=== PATIENT | male | born 1955 | race African-American/Black ===

== ENCOUNTER 2018-12-23 14:15 | Inpatient (IN) | payer OTHER ==
[2018-12-23 19:18] VITALS: BMI 28.0
--- NOTE | 2018-12-23 20:19 | HP ---
"CIWA Score Nausea/Vomitin-Mild Nausea/No Vomiting Muscle Tremors: 1-None Visible, but [place] Anxiety: 3 Agitation: 4-Moderately Restless Paroxysmal Sweats: 3 Orientation: 2-Disoriented Date<2 days Tacttile Disturbances: 0-None Auditory Disturbances: 0-None Visual Disturbances: 0-None Headache: 2-Mild CIWA-Ar Total Score: 16 - Admission Criteria OAS Guidelines: Admission for Medically Managed Detox: Requires at least one of the followin. CIWA greater than 12 2. Seizures within the past 24 hours 3. Delirium tremens within the past 24 hours 4. Hallucinations within the past 24 hours 5. Acute intervention needed for co occurring medical disorder 6. Acute intervention needed for co occurring psychiatric disorder 7. Severe withdrawal that cannot be handled at a lower level of care (continued vomiting, continued diarrhea, abnormal vital signs) requiring intravenous medication and/or fluids 8. Patient presents the following: CIWA greater than 12 Admission Criteria Met: Admission criteria met Admission ROS [facility] Chief Complaint: Alcohol withdrawal. Allergies/Adverse Reactions: Allergies Allergy/AdvReac Type Severity Reaction Status Date / Time No Known Allergies Allergy Verified 12/23/18 19:18 History of Present Illness: I need detox for my alcohol and my cocaine. Alcohol use began at age 16. Current years x years. Cocaine use began at age 37. Marijuana use began at age 16. Nicotine use began at age 16. PMHx: Cough x 2 days. PPD (+) rx'd w/ INH; Varicose veins.Denies other significant PMH MHHx: Denies MH problems. Denies thoughts of harming self or others. 12/23/18 EKG: Abnormal T wave and Prolonged QT interval Search Terms: Avila Feliz, 1955 Search Date: 12/23/2018 08:16:06 PM The Drug Utilization Report below displays all of the controlled substance prescriptions, if any, that your patient has filled in the last twelve months. The information displayed on this report is compiled from pharmacy submissions to the Department, and accurately reflects the information as submitted by the pharmacies. This report was requested by: Dorys Porras | Reference #: [id number] There are no results for the search terms that you entered. Exam Limitations: No Limitations - Ebola screening Have you traveled outside of the country in the last 21 days: No Have you had contact with anyone from an Ebola affected area: No Have you been sick,other than usual withdrawal symptoms: No (Denies recent exposure to measles) Do you have a fever: No - Review of Systems Constitutional: Chills, Diaphoresis EENT: reports: Blurred Vision Respiratory: reports: Cough (Cough x today profuctive white phlegm) Cardiac: reports: No Symptoms Reported GI: reports: Diarrhea (brownish, watery 2 x today), Nausea : reports: No Symptoms Reported Musculoskeletal: reports: No Symptoms Reported Integumentary: reports: No Symptoms Reported Neuro: reports: Headache (Temporal - mild), Tremors Endocrine: reports: No Symptoms Reported Hematology: reports: No Symptoms Reported Psychiatric: reports: Judgement Intact, Agitated, Anxious, Disorientated ( Missed date by 2 days) Patient History - Patient Medical History Hx Anemia: No Hx Asthma: No Hx Chronic Obstructive Pulmonary Disease (COPD): No Hx Cancer: No Hx Cardiac Disorders: No Hx Congestive Heart Failure: No Hx Hypertension: No Hx Hypercholesterolemia: No Hx Pacemaker: No HX Cerebrovascular Accident: No Hx Seizures: No Hx Dementia: No Hx Diabetes: No Hx Gastrointestinal Disorders: No Hx Liver Disease: No Hx Genitourinary Disorders: No Hx Sexually Transmitted Disorders: No Hx Renal Disease (ESRD): No Hx Thyroid Disease: No Hx Human Immunodeficiency Virus (HIV): No Hx Hepatitis C: No Hx Depression: No Hx Suicide Attempt: No Hx Bipolar Disorder: No Hx Schizophrenia: No - Patient Surgical History Past Surgical History: No Hx Neurologic Surgery: No Hx Cataract Extraction: No Hx Cardiac Surgery: No Hx Lung Surgery: No Hx Breast Surgery: No Hx Breast Biopsy: No Hx Abdominal Surgery: No Hx Appendectomy: No Hx Cholecystectomy: No Hx Genitourinary Surgery: No Hx Section: No Hx Orthopedic Surgery: No Anesthesia Reaction: No - PPD History Previous Implant?: Yes Documented Results: Positive w/o proof Implanted On Prior [facility] Admission?: Yes Date: 05/21/15 (States (+) and RX'd w/ INH) PPD to be Administered?: No - Smoking Cessation Smoking history: Current every day smoker Have you smoked in the past 12 months: Yes Aproximately how many cigarettes per day: 10 Cigars Per Day: 0 Hx Chewing Tobacco Use: No Initiated information on smoking cessation: Yes 'Breaking Loose' booklet given: 12/23/18 - Substance & Tx. History Hx Alcohol Use: Yes Hx Substance Use: Yes Substance Use Type: Alcohol, Cocaine, Marijuana Hx Substance Use Treatment: Yes (detox, rehab) - Substances abused Alcohol Substance route: Oral Frequency: Daily Amount used: liquor- 1 pint, beer- 1 six pack Age of first use: 16 Date of last use: 12/23/18 Crack Substance route: Smoking Frequency: Daily Amount used: $40 worth Age of first use: 37 Date of last use: 12/22/18 Family Disease History - Family Disease History Family Disease History: Diabetes: Grandparent, Heart Disease: Father ( [place] ), [place]: Mother (), Other: Sister ( HIV) Admission Physical Exam [facility] - Vital Signs Vital Signs: Vital Signs - 24 hr 12/23/18 19:14 Temperature 98.7 F Pulse Rate 94 H Respiratory 18 Rate Blood Pressure 123/77 - Physical General Appearance: Yes: Nourished, Mild Distress, Sweating (Increased facial moisture), Anxious HEENTM: Yes: EOMI, Hearing grossly Normal, Normocephalic, JUJU, Pharynx Normal Respiratory: Yes: Normal Breath Sounds, No Respiratory Distress, Other (Cough productive clear phlegm.) Neck: Yes: No masses,lesions,Nodules, Supple Breast: Yes: Breast Exam Deferred Cardiology: Yes: Regular Rhythm, Regular Rate, S1, S2 Abdominal: Yes: Non Tender, Soft Genitourinary: Yes: Within Normal Limits Back: Yes: Normal Inspection Musculoskeletal: Yes: full range of Motion Extremities: Yes: Normal Capillary Refill, Normal Range of Motion, Non-Tender, Tremors, Other (Engorged veins both legs (R) > (L). (R) lower extremtiy deeper reddisg color than (L). 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, Alert, Motor Strength 5/5 Integumentary: Yes: Warm, Diaphoresis (Increased facial mositure) Lymphatic: Yes: Within Normal Limits - Diagnostic (1) Varicose veins of both legs with edema Current Visit: Yes Status: Chronic Comment: Right leg more engorged than left (2) Abnormal finding on EKG Current Visit: Yes Status: Chronic (3) Alcohol dependence with uncomplicated withdrawal Current Visit: Yes Status: Acute (4) Cocaine dependence, uncomplicated Current Visit: Yes Status: Chronic (5) nicotine dependence Current Visit: Yes Status: Chronic (6) Cough Current Visit: Yes Status: Acute Comment: Denies CP/SOB. (7) History of positive PPD Current Visit: Yes Status: Chronic Comment: States rx'd w/ INH (8) Cannabis abuse, uncomplicated Current Visit: Yes Status: Chronic Cleared for Admission [facility] - Detox or Rehab [facility] Level of Care: Medically Managed Detox Regimen/Protocol: Librium Claeared for Rehab Admission: No Breathalyzer - Breathalyzer Breathalyzer: 0.070 Urine Drug Screen - Test Device Lot number: [id number] Expiration date: 07/29/20 - Control Is test valid?: Yes - Results Drug screen NEGATIVE: No Urine drug screen results: THC-Marijuana, MARCO-Cocaine, MET-Methamphetamine, BZO- Benzodiazepines Inpatient Rehab Admission - Rehab Decision to Admit Inpatient rehab admission?: No"
[2018-12-23] MEDS ORDERED: MAG HYDROX/AL HYDROX/SIMETH 30 ML UNIT-DOSE CUP PO PRN (20:45)
[2018-12-23] MEDS ORDERED: MAGNESIUM HYDROX 2400MG/30ML ORAL SUSPENSION 30 ML CUP PO PRN (20:45)
[2018-12-23] MEDS ORDERED: MENTHOL/PHENOL 1 EACH UD MM PRN (20:45)
[2018-12-23] MEDS ORDERED: MELATONIN 5 MG TABLETS PO PRN (20:45)
[2018-12-23] MEDS ORDERED: ONDANSETRON *ODT* 4 MG TABLET SL PRN (20:45)
[2018-12-23] MEDS ORDERED: BISMUTH SUBSALICYLATE 524 MG/30 ML UD PO PRN (20:45)
[2018-12-23] MEDS ORDERED: IBUPROFEN 400 MG TABLET (FP) PO PRN (20:45)
[2018-12-23] MEDS ORDERED: hydrOXYzine PAMOATE 25 MG CAPSULE (FP) PO PRN (20:45)
[2018-12-23] MEDS ORDERED: METHOCARBAMOL 500 MG TABLET PO PRN (20:45)
[2018-12-23] MEDS ORDERED: NICOTINE POLACRILEX 2 MG GUM BUC PRN (20:45)
[2018-12-23] MEDS ORDERED: guaiFENesin 200 MG/10 ML 10 ML UNIT-DOSE CUPS PO PRN (20:45)
[2018-12-23] MEDS ORDERED: chlordiazePOXIDE HCL 10 MG CAPSULE PO PRN (20:45)
[2018-12-23] MEDS ORDERED: MAGNESIUM CITRATE 300 ML BOTTLE PO PRN (20:45)
[2018-12-23] MEDS ORDERED: ACETAMINOPHEN 325 MG TABLET (FP) PO PRN ×2 (20:45)
[2018-12-23] MEDS: THIAMINE HCL 100 MG TABLET (FP) PO SCH (23:01)
[2018-12-23] MEDS: chlordiazePOXIDE HCL 25 MG CAPSULE PO SCH (23:01)
[2018-12-24 00:07] LABS: EPI CELLS 0.2 /HPF (0-5/HPF); URINE APPEARANCE CLEAR; URINE BACTERIA 1.2 /hpf (NEGATIVE); URINE BILIRUBIN NEGATIVE (NEGATIVE); URINE CASTS 0 /lpf (0-8); URINE COLOR DK YELLOW; URINE GLUCOSE (UA) NEGATIVE (NEGATIVE); URINE KETONE TRACE (NEGATIVE); URINE LEUK ESTERASE TRACE (NEGATIVE); URINE NITRITE NEGATIVE (NEGATIVE); URINE PROTEIN NEGATIVE (NEGATIVE); URINE RBC 2 /hpf (0-4); URINE WBC 1 /hpf (0-5)
[2018-12-24] MEDS: chlordiazePOXIDE HCL 25 MG CAPSULE PO SCH ×2 (06:29→12:38)
[2018-12-24] MEDS ORDERED: PRENATAL VITAMINS W/ FOLIC ACID TABLET (FP) PO SCH (10:00)
[2018-12-24] MEDS ORDERED: NICOTINE 14 MG/24 HOURS TOPICAL PATCH TD SCH (10:00)
[2018-12-24 10:28] LABS: HEMATOCRIT 40.7 % (35.4-49); HEMOGLOBIN 13.9 GM/dL (11.7-16.9); MCH 33.5 pg (25.7-33.7); MCHC 34.1 g/dl (32.0-35.9); MEAN CELL VOLUME 98.4 fl (80-96); PLATELET COUNT 216 K/MM3 (134-434); RBC 4.14 M/mm3 (4.00-5.60); RDW 12.9 % (11.9-15.9); WHITE BLOOD COUNT 5.9 K/mm3 (4.0-10.0)
[2018-12-24 11:08] LABS: ALBUMIN 3.2 g/dl (3.4-5.0); ALK PHOS 100 U/L (45-117); ANION GAP 7 MMOL/L (8-16); BILIRUBIN,TOTAL 0.5 mg/dL (0.2-1); BLOOD UREA NITROGEN 11 mg/dL (7-18); CHLORIDE 105 mmol/L (98-107); CO2 27 mmol/L (21-32); CREATININE 0.9 mg/dL (0.55-1.3); GLUCOSE,RANDOM 117 mg/dL (74-106); SGOT/AST 27 U/L (15-37); SGPT/ALT 23 U/L (13-61); SODIUM 138 mmol/L (136-145); TOT PROT 6.9 g/dl (6.4-8.2)
--- NOTE | 2018-12-24 11:19 | PN ---
[facility] CIWA - CIWA Score Nausea/Vomitin-No Nausea/No Vomiting Muscle Tremors: 3 Anxiety: 3 Agitation: 3 Paroxysmal Sweats: 3 Orientation: 0-Oriented Tacttile Disturbances: 0-None Auditory Disturbances: 0-None Visual Disturbances: 0-None Headache: 0-None Present CIWA-Ar Total Score: 12 S Progress Note (SOAP) Subjective: sweats irritable agitation interrupted sleep Objective: 12/24/18 11:18 Vital Signs Temperature 98.1 F 12/24/18 09:35 Pulse Rate 96 H 12/24/18 09:35 Respiratory Rate 16 12/24/18 09:35 Blood Pressure 108/74 12/24/18 09:35 O2 Sat by Pulse Oximetry (%) Laboratory Tests 12/23/18 12/24/18 12/24/18 21:47 05:30 05:30 WBC 5.9 RBC 4.14 Hgb 13.9 Hct 40.7 MCV 98.4 H MCH 33.5 MCHC 34.1 RDW 12.9 Plt Count 216 MPV 10.0 Sodium 138 Potassium 4.0 Chloride 105 Carbon Dioxide 27 Anion Gap 7 L BUN 11 Creatinine 0.9 Creat Clearance w eGFR 85.79 Random Glucose 117 H Calcium 9.0 Total Bilirubin 0.5 AST 27 ALT 23 Alkaline Phosphatase 100 Total Protein 6.9 Albumin 3.2 L Urine Color Dk yellow Urine Appearance Clear Urine pH 5.0 Ur Specific [place] 1.021 Urine Protein Negative Urine Glucose (UA) Negative Urine Ketones Trace H Urine Blood Negative Urine Nitrite Negative Urine Bilirubin Negative Urine Urobilinogen 1.0 Ur Leukocyte Esterase Trace Urine WBC (Auto) 1 Urine RBC (Auto) 2 Urine Casts (Auto) 0 U Epithel Cells (Auto) 0.2 Urine Bacteria (Auto) 1.2 aaox3 ambulating no acute distress Assessment: 12/24/18 11:18 withdrawal sx Plan: continue detox increase fluids
--- NOTE | 2018-12-24 15:19 | EKG ---
Test Reason : Blood Pressure : / mmHG Vent. Rate : 074 BPM Atrial Rate : 074 BPM P-R Int : 164 ms QRS Dur : 086 ms QT Int : 424 ms P-R-T Axes : 073 062 072 degrees QTc Int : 470 ms NORMAL SINUS RHYTHM NONSPECIFIC T WAVE ABNORMALITY PROLONGED QT ABNORMAL ECG NO PREVIOUS ECGS AVAILABLE Confirmed by JANE HARE MD ([id number]) on 12/24/2018 3:19:46 PM Referred By: Cassandra GASTELUM Confirmed By:JANE HARE MD
[2018-12-24] MEDS: chlordiazePOXIDE 5 MG CAPSULE PO SCH (23:54)
[2018-12-24] MEDS: THIAMINE HCL 100 MG TABLET (FP) PO SCH (23:54)
[2018-12-25] MEDS: chlordiazePOXIDE 5 MG CAPSULE PO SCH (06:09)
[2018-12-25 09:31] VITALS: BP 133/87; PULSE 80; TEMP 97.8
--- NOTE | 2018-12-25 10:36 | PN ---
[facility] Progress Note Note: PATIENT REQUESTED TO SIGN OUT AMA. PATIENT ENCOURAGED TO COMPLETE DETOX AND EXPLAINED RISK FACTORS OF RELAPSE WITH SIGNING OUT AMA. PATIENT REFUSED TO STAY IN TREATMENT. PATIENT DENIES SI/HI AND IN NO ACUTE DISTRESS AT THIS TIME. PATIENT ENCOURAGED TO FOLLOW UP WITH PCP TO CONTINUE MEDICAL MANAGEMENT WITHIN ONE WEEK OF DISCHARGE.
--- NOTE | 2018-12-25 10:36 | DS ---
[facility] Detox Discharge Summary Admission Date: 12/23/18 Discharge Date: 12/25/18 - History Present History: Alcohol Dependence - Physical Exam Results Vital Signs: Vital Signs Temperature 97.8 F 12/25/18 09:31 Pulse Rate 80 12/25/18 09:31 Respiratory Rate 18 12/25/18 09:31 Blood Pressure 133/87 12/25/18 09:31 O2 Sat by Pulse Oximetry (%) - Medication Discharge Medications: Ambulatory Orders NK [No Known Home Medication] 03/02/14 - AMA Did Patient Leave Against Medical Advice: Yes
[2018-12-25] MEDS ORDERED: chlordiazePOXIDE HCL 10 MG CAPSULE PO PRN (21:00)
[2018-12-25] MEDS ORDERED: chlordiazePOXIDE HCL 10 MG CAPSULE PO SCH (21:00)
== END 2018-12-25 09:05 | disposition left against medical advice (07) | DRG 770 ==
LOC: YASAS 14:15 → Y6N 20:51
PROVIDERS: ADMIT Surgery; ATTEND Surgery
PROC: HZ2ZZZZ Detoxification Services for Substance Abuse Treatment (ICD-10-PCS; principal; 2018-12-23)
DX: F10.230 Alcohol dependence with withdrawal, uncomplicated (principal); F14.20 Cocaine dependence, uncomplicated; F12.10 Cannabis abuse, uncomplicated; F17.210 Nicotine dependence, cigarettes, uncomplicated; I83.893 Varicose veins of bilateral lower extremities with other complications; R05 Cough; R76.11 Nonspecific reaction to tuberculin skin test without active tuberculosis; R94.31 Abnormal electrocardiogram [ECG] [EKG]
CPT/HCPCS: 36415; 80053; 81003; 85027; 86593; 93005; 93010

== ENCOUNTER 2019-04-14 11:52 | Inpatient (IN) | payer OTHER ==
[2019-04-14 14:40] VITALS: BMI 27.3
--- NOTE | 2019-04-14 16:02 | HP ---
CIWA Score Nausea/Vomitin Muscle Tremors: 1-None Visible, but [place] Anxiety: 3 Agitation: 3 Paroxysmal Sweats: 1-Minimal Palms Moist Orientation: 0-Oriented Tacttile Disturbances: 0-None Auditory Disturbances: 0-None Visual Disturbances: 0-None Headache: 3-Moderate CIWA-Ar Total Score: 13 - Admission Criteria OASAS Guidelines: Admission for Medically Managed Detox: Requires at least one of the followin. CIWA greater than 12 2. Seizures within the past 24 hours 3. Delirium tremens within the past 24 hours 4. Hallucinations within the past 24 hours 5. Acute intervention needed for co occurring medical disorder 6. Acute intervention needed for co occurring psychiatric disorder 7. Severe withdrawal that cannot be handled at a lower level of care (continued vomiting, continued diarrhea, abnormal vital signs) requiring intravenous medication and/or fluids 8. Admission ROS [facility] Chief Complaint: alcohol detox Allergies/Adverse Reactions: Allergies Allergy/AdvReac Type Severity Reaction Status Date / Time No Known Allergies Allergy Verified 04/14/19 14:27 History of Present Illness: Patient is a 64 yo M with no known PMHx (does not see a doctor), here for alcohol detox and rehab. Has been drinking since he was 16. Last drink this morning. Had 2 24oz beers this morning. He drinks 1 pint of vodka, and 6 24oz beers a day. Patient does crack/cocaine at least twice a week. Around 40-50 dollars a week. Had detox here before, says a few months ago. No hx of seizures. no blackouts. Lives in an apartment by himself. Does not work. Smokes half ppd for many years. refusing nicotine patch. - Ebola screening Have you traveled outside of the country in the last 21 days: No (N) Have you had contact with anyone from an Ebola affected area: No Do you have a fever: No - Review of Systems Constitutional: No Symptoms Reported Respiratory: denies: Cough, Shortness of Breath Cardiac: denies: Chest Pain, Palpitations GI: reports: No Symptoms Reported Patient History - Patient Medical History Hx Anemia: No Hx Asthma: No Hx Chronic Obstructive Pulmonary Disease (COPD): No Hx Cancer: No Hx Cardiac Disorders: No Hx Congestive Heart Failure: No Hx Hypertension: No Hx Hypercholesterolemia: No Hx Pacemaker: No HX Cerebrovascular Accident: No Hx Seizures: No Hx Dementia: No Hx Diabetes: No Hx Gastrointestinal Disorders: No Hx Liver Disease: No Hx Genitourinary Disorders: No Hx Sexually Transmitted Disorders: No Hx Renal Disease (ESRD): No Hx Thyroid Disease: No Hx Human Immunodeficiency Virus (HIV): No Hx Hepatitis C: No Hx Depression: No Hx Suicide Attempt: No Hx Bipolar Disorder: No Hx Schizophrenia: No - Patient Surgical History Past Surgical History: No Hx Neurologic Surgery: No Hx Cataract Extraction: No Hx Cardiac Surgery: No Hx Lung Surgery: No Hx Breast Surgery: No Hx Breast Biopsy: No Hx Abdominal Surgery: No Hx Appendectomy: No Hx Cholecystectomy: No Hx Genitourinary Surgery: No Hx Section: No Hx Orthopedic Surgery: No Anesthesia Reaction: No - PPD History Date: 05/21/15 - Smoking Cessation Smoking history: Current every day smoker Have you smoked in the past 12 months: Yes Aproximately how many cigarettes per day: 10 Cigars Per Day: 0 Hx Chewing Tobacco Use: No Initiated information on smoking cessation: Yes 'Breaking Loose' booklet given: 04/14/19 - Substances abused Alcohol Substance route: Oral Frequency: Daily Amount used: 1 pint of vodka beer- 1 six pack Age of first use: 16 Date of last use: 04/14/19 Crack Substance route: Smoking Frequency: Daily Amount used: $40 worth Age of first use: 37 Date of last use: 12/22/18 Family Disease History - Family Disease History Family Disease History: Diabetes: Grandparent, Heart Disease: Father ( [place] ), [place]: Mother (), Other: Sister ( HIV) Admission Physical Exam S - Vital Signs Vital Signs: Vital Signs - 24 hr 04/14/19 14:27 Temperature 98.4 F Pulse Rate 100 H Respiratory 16 Rate Blood Pressure 126/83 - Physical General Appearance: Yes: Within Normal Limits HEENTM: Yes: EOMI, Normal Voice, JUJU Respiratory: Yes: No Respiratory Distress, No Accessory Muscle Use Neck: Yes: Supple Cardiology: Yes: Regular Rate, S1, S2 Abdominal: Yes: Non Tender, Soft Extremities: Yes: Other (varicose veins b.l LE) Neurological: Yes: Fully Oriented - Diagnostic (1) Cocaine abuse Current Visit: Yes Status: Acute (2) Alcohol abuse Current Visit: Yes Status: Acute (3) Weight decreased Current Visit: No Status: Active (4) Alcohol dependence with uncomplicated withdrawal Current Visit: No Status: Acute (5) Cocaine dependence, uncomplicated Current Visit: No Status: Chronic (6) nicotine dependence Current Visit: No Status: Chronic Cleared for Admission S - Detox or Rehab [facility] Level of Care: Medically Managed Breathalyzer - Breathalyzer Breathalyzer: 0.154 Urine Drug Screen - Test Device Lot number: [id number] Expiration date: 01/27/21 - Control Is test valid?: Yes - Results Drug screen NEGATIVE: No Urine drug screen results: MARCO-Cocaine, BZO-Benzodiazepines Inpatient Rehab Admission - Rehab Decision to Admit Inpatient rehab admission?: No
--- NOTE | 2019-04-14 16:17 | PN ---
Teaching Attending Note Name of Resident: Martín Garibay ATTENDING PHYSICIAN STATEMENT I saw and evaluated the patient. I reviewed the resident's note and discussed the case with the resident. I agree with the resident's findings and plan as documented. SUBJECTIVE: 64 yo with no medical problems and non no meds, here for alcohol detox. Was last in detox about a month ago-at [facility] and last here a few months ago, returns for detox. Has no h/o seizures or DT's. CIWA- 13 OBJECTIVE: Vital Signs - 24 hr 04/14/19 14:27 Temperature 98.4 F Pulse Rate 100 H Respiratory 16 Rate Blood Pressure 126/83 alert and oriented mildy tremors ASSESSMENT AND PLAN: alcohol use disorder: alcohol detox protocol with librium h/o pos PPD- recent pelon neg per pt report
[2019-04-14] MEDS ORDERED: BISMUTH SUBSALICYLATE 524 MG/30 ML UD PO PRN (16:18)
[2019-04-14] MEDS ORDERED: MAG HYDROX/AL HYDROX/SIMETH 30 ML UNIT-DOSE CUP PO PRN (16:18)
[2019-04-14] MEDS ORDERED: IBUPROFEN 400 MG TABLET (FP) PO PRN (16:18)
[2019-04-14] MEDS ORDERED: ACETAMINOPHEN 325 MG TABLET (FP) PO PRN ×2 (16:18)
[2019-04-14] MEDS ORDERED: MAGNESIUM CITRATE 300 ML BOTTLE PO PRN (16:18)
[2019-04-14] MEDS ORDERED: METHOCARBAMOL 500 MG TABLET PO PRN (16:18)
[2019-04-14] MEDS ORDERED: chlordiazePOXIDE HCL 25 MG CAPSULE PO PRN (16:18)
[2019-04-14] MEDS ORDERED: MENTHOL/PHENOL 1 EACH UD MM PRN (16:18)
[2019-04-14] MEDS ORDERED: hydrOXYzine PAMOATE 25 MG CAPSULE (FP) PO PRN (16:18)
[2019-04-14] MEDS ORDERED: MAGNESIUM HYDROX 2400MG/30ML ORAL SUSPENSION 30 ML CUP PO PRN (16:18)
[2019-04-14] MEDS ORDERED: MELATONIN 5 MG TABLETS PO PRN (16:18)
[2019-04-14] MEDS: chlordiazePOXIDE HCL 25 MG CAPSULE PO SCH ×2 (17:57→22:08)
[2019-04-14] MEDS: guaiFENesin 600 MG TABLET.ER (FP) PO SCH (22:07)
[2019-04-14] MEDS: THIAMINE HCL 100 MG TABLET (FP) PO SCH (22:08)
[2019-04-15] MEDS: chlordiazePOXIDE HCL 25 MG CAPSULE PO SCH ×4 (06:28→23:22)
[2019-04-15] MEDS: guaiFENesin 600 MG TABLET.ER (FP) PO SCH ×2 (10:08→23:22)
[2019-04-15] MEDS: PRENATAL VITAMINS W/ FOLIC ACID TABLET (FP) PO SCH (10:08)
[2019-04-15 10:37] LABS: HEMATOCRIT 40.4 % (35.4-49); HEMOGLOBIN 13.7 GM/dL (11.7-16.9); MCH 32.6 pg (25.7-33.7); MCHC 33.9 g/dl (32.0-35.9); MEAN CELL VOLUME 96.4 fl (80-96); MEAN PLT VOLUME 10.1 fl (7.5-11.1); PLATELET COUNT 214 K/MM3 (134-434); RBC 4.19 M/mm3 (4.00-5.60); RDW 12.9 % (11.9-15.9); WHITE BLOOD COUNT 4.6 K/mm3 (4.0-10.0)
[2019-04-15 11:07] LABS: ALBUMIN 3.2 g/dl (3.4-5.0); BILIRUBIN,TOTAL 0.8 mg/dL (0.2-1); BLOOD UREA NITROGEN 9.5 mg/dL (7-18); CALCIUM 8.4 mg/dL (8.5-10.1); CREATININE 0.8 mg/dL (0.55-1.3); POTASSIUM 3.9 mmol/L (3.5-5.1); TOT PROT 6.6 g/dl (6.4-8.2)
--- NOTE | 2019-04-15 16:08 | PN ---
S CIWA - CIWA Score Nausea/Vomitin-Mild Nausea/No Vomiting Muscle Tremors: 3 Anxiety: 3 Agitation: 2 Paroxysmal Sweats: No Perspiration Orientation: 0-Oriented Tacttile Disturbances: 1-Very Mild Itch/Numbness Auditory Disturbances: 0-None Visual Disturbances: 2-Mild Sensitivity Headache: 2-Mild CIWA-Ar Total Score: 14 S Progress Note (SOAP) Subjective: Anxious, H/A, Tremors, Restless. Objective: PATIENT A & O X 3, OBSERVED AMBULATING ON UNIT UNASSISTED. IN NO ACUTE DISTRESS. 04/15/19 16:06 Vital Signs Temperature 97.6 F 04/15/19 09:45 Pulse Rate 89 04/15/19 09:45 Respiratory Rate 20 04/15/19 09:45 Blood Pressure 132/91 04/15/19 09:45 O2 Sat by Pulse Oximetry (%) Laboratory Tests 04/15/19 04/15/19 04/15/19 07:30 07:30 07:30 WBC 4.6 RBC 4.19 Hgb 13.7 Hct 40.4 MCV 96.4 H MCH 32.6 MCHC 33.9 RDW 12.9 Plt Count 214 MPV 10.1 Sodium 142 Potassium 3.9 Chloride 107 Carbon Dioxide 27 Anion Gap 9 BUN 9.5 Creatinine 0.8 Est GFR (CKD-EPI)AfAm 110.96 Est GFR (CKD-EPI)NonAf 95.74 Random Glucose 81 Calcium 8.4 L Total Bilirubin 0.8 AST 42 H ALT 32 Alkaline Phosphatase 90 Total Protein 6.6 Albumin 3.2 L HIV 1&2 Antibody Screen Cancelled HIV P24 Antigen Cancelled LABS NOTED. RESULTS OF DETOX ADMISSION QFT /TB AND OF HIV AB TESTS PENDING. PATIENT HAS HAD ELEVATED AST LEVELS ON PREVIOUS ADMISSIONS. 04/15/19 16:07 Assessment: 04/15/19 16:07 WITHDRAWAL SYMPTOMS. ELEVATED AST LEVEL. Plan: CONTINUE DETOX. INCREASE DAILY PO WATER INTAKE.
[2019-04-15] MEDS: THIAMINE HCL 100 MG TABLET (FP) PO SCH (23:22)
[2019-04-16] MEDS: chlordiazePOXIDE HCL 25 MG CAPSULE PO SCH ×2 (05:29→10:52)
[2019-04-16 09:42] VITALS: BP 132/78; PULSE 64; TEMP 97
[2019-04-16] MEDS: PRENATAL VITAMINS W/ FOLIC ACID TABLET (FP) PO SCH (10:52)
[2019-04-16] MEDS: guaiFENesin 600 MG TABLET.ER (FP) PO SCH (10:52)
--- NOTE | 2019-04-16 13:55 | DS ---
[facility] Detox Discharge Summary Admission Date: 04/14/19 Discharge Date: 04/16/19 - History Present History: Alcohol Dependence Additional Comments: 64 years old male admitted on 04/14/19 for acute alcohol withdrawal sx management doing well with librium detox regimen patient insists to leave the detox unit today without apparent reason patient is alert oriented x 3 no acute distress denies suicidal ideation S1S2 regular clear lung - Physical Exam Results Vital Signs: Vital Signs Temperature 97.0 F L 04/16/19 09:42 Pulse Rate 64 04/16/19 09:42 Respiratory Rate 19 04/16/19 09:42 Blood Pressure 132/78 04/16/19 09:42 O2 Sat by Pulse Oximetry (%) Laboratory Last Values WBC 4.6 K/mm3 (4.0-10.0) 04/15/19 07:30 RBC 4.19 M/mm3 (4.00-5.60) 04/15/19 07:30 Hgb 13.7 GM/dL (11.7-16.9) 04/15/19 07:30 Hct 40.4 % (35.4-49) 04/15/19 07:30 MCV 96.4 fl (80-96) H 04/15/19 07:30 MCH 32.6 pg (25.7-33.7) 04/15/19 07:30 MCHC 33.9 g/dl (32.0-35.9) 04/15/19 07:30 RDW 12.9 % (11.9-15.9) 04/15/19 07:30 Plt Count 214 K/MM3 (134-434) 04/15/19 07:30 MPV 10.1 fl (7.5-11.1) 04/15/19 07:30 Sodium 142 mmol/L (136-145) 04/15/19 07:30 Potassium 3.9 mmol/L (3.5-5.1) 04/15/19 07:30 Chloride 107 mmol/L (98-107) 04/15/19 07:30 Carbon Dioxide 27 mmol/L (21-32) 04/15/19 07:30 Anion Gap 9 MMOL/L (8-16) 04/15/19 07:30 BUN 9.5 mg/dL (7-18) 04/15/19 07:30 Creatinine 0.8 mg/dL (0.55-1.3) 04/15/19 07:30 Est GFR (CKD-EPI)AfAm 110.96 04/15/19 07:30 Est GFR (CKD-EPI)NonAf 95.74 04/15/19 07:30 Random Glucose 81 mg/dL (74-106) 04/15/19 07:30 Calcium 8.4 mg/dL (8.5-10.1) L 04/15/19 07:30 Total Bilirubin 0.8 mg/dL (0.2-1) 04/15/19 07:30 AST 42 U/L (15-37) H 04/15/19 07:30 ALT 32 U/L (13-61) 04/15/19 07:30 Alkaline Phosphatase 90 U/L (45-117) 04/15/19 07:30 Total Protein 6.6 g/dl (6.4-8.2) 04/15/19 07:30 Albumin 3.2 g/dl (3.4-5.0) L 04/15/19 07:30 RPR Titer Nonreactive (NONREACTIVE) 04/15/19 07:30 HIV 1&2 Ag/Ab, 4th Gen Non reactive (Non Reactive) 04/14/19 09:15 HIV 1&2 Antibody Screen Cancelled 04/15/19 07:30 HIV P24 Antigen Cancelled 04/15/19 07:30 Pertinent Admission Physical Exam Findings: alcohol withdrawal sx Laboratory Last Values WBC 4.6 K/mm3 (4.0-10.0) 04/15/19 07:30 RBC 4.19 M/mm3 (4.00-5.60) 04/15/19 07:30 Hgb 13.7 GM/dL (11.7-16.9) 04/15/19 07:30 Hct 40.4 % (35.4-49) 04/15/19 07:30 MCV 96.4 fl (80-96) H 04/15/19 07:30 MCH 32.6 pg (25.7-33.7) 04/15/19 07:30 MCHC 33.9 g/dl (32.0-35.9) 04/15/19 07:30 RDW 12.9 % (11.9-15.9) 04/15/19 07:30 Plt Count 214 K/MM3 (134-434) 04/15/19 07:30 MPV 10.1 fl (7.5-11.1) 04/15/19 07:30 Sodium 142 mmol/L (136-145) 04/15/19 07:30 Potassium 3.9 mmol/L (3.5-5.1) 04/15/19 07:30 Chloride 107 mmol/L (98-107) 04/15/19 07:30 Carbon Dioxide 27 mmol/L (21-32) 04/15/19 07:30 Anion Gap 9 MMOL/L (8-16) 04/15/19 07:30 BUN 9.5 mg/dL (7-18) 04/15/19 07:30 Creatinine 0.8 mg/dL (0.55-1.3) 04/15/19 07:30 Est GFR (CKD-EPI)AfAm 110.96 04/15/19 07:30 Est GFR (CKD-EPI)NonAf 95.74 04/15/19 07:30 Random Glucose 81 mg/dL (74-106) 04/15/19 07:30 Calcium 8.4 mg/dL (8.5-10.1) L 04/15/19 07:30 Total Bilirubin 0.8 mg/dL (0.2-1) 04/15/19 07:30 AST 42 U/L (15-37) H 04/15/19 07:30 ALT 32 U/L (13-61) 04/15/19 07:30 Alkaline Phosphatase 90 U/L (45-117) 04/15/19 07:30 Total Protein 6.6 g/dl (6.4-8.2) 04/15/19 07:30 Albumin 3.2 g/dl (3.4-5.0) L 04/15/19 07:30 RPR Titer Nonreactive (NONREACTIVE) 04/15/19 07:30 HIV 1&2 Ag/Ab, 4th Gen Non reactive (Non Reactive) 04/14/19 09:15 HIV 1&2 Antibody Screen Cancelled 04/15/19 07:30 HIV P24 Antigen Cancelled 04/15/19 07:30 lab noted - Treatment Hospital Course: Detox Protocol Followed, Responded well Patient has Accepted a Rehab Referral to: community support approach - Medication Discharge Medications: Ambulatory Orders NK [No Known Home Medication] 03/02/14 - Diagnosis (1) nicotine dependence Status: Acute (2) Alcohol dependence with uncomplicated withdrawal Status: Acute (3) History of positive PPD Status: Resolved - AMA Did Patient Leave Against Medical Advice: Yes CIWA Score - CIWA Score Nausea/Vomitin-Mild Nausea/No Vomiting Muscle Tremors: 3 Anxiety: 2 Agitation: 2 Paroxysmal Sweats: No Perspiration Orientation: 0-Oriented Tacttile Disturbances: 1-Very Mild Itch/Numbness Auditory Disturbances: 0-None Visual Disturbances: 1-Very Mild Sensitivity Headache: 2-Mild CIWA-Ar Total Score: 12
[2019-04-17] MEDS ORDERED: chlordiazePOXIDE HCL 10 MG CAPSULE PO PRN
[2019-04-17] MEDS ORDERED: chlordiazePOXIDE HCL 10 MG CAPSULE PO SCH (05:00)
[2019-04-18] MEDS ORDERED: chlordiazePOXIDE HCL 10 MG CAPSULE PO SCH (05:00)
[2019-04-19] MEDS ORDERED: chlordiazePOXIDE HCL 10 MG CAPSULE PO ONE (05:00)
== END 2019-04-16 09:40 | disposition left against medical advice (07) | DRG 770 ==
LOC: YASAS 11:52 → Y3N 16:24
PROVIDERS: ADMIT Surgery; ATTEND Surgery
PROC: HZ2ZZZZ Detoxification Services for Substance Abuse Treatment (ICD-10-PCS; principal; 2019-04-14)
DX: F10.230 Alcohol dependence with withdrawal, uncomplicated (principal); F17.210 Nicotine dependence, cigarettes, uncomplicated; R25.1 Tremor, unspecified; R74.0 Nonspecific elevation of levels of transaminase and lactic acid dehydrogenase [LDH]; R76.11 Nonspecific reaction to tuberculin skin test without active tuberculosis
CPT/HCPCS: 36415; 80053; 85027; 86480; 86593; 87389